=== PATIENT | male | born 1990 | race Caucasian/White ===

== ENCOUNTER 2017-12-19 09:38 | Emergency (ER) | payer SELFPAY ==
[~2017-12-19] VITALS: Ht 172.7 cm; Wt 87.0 kg
[2017-12-19 09:39] VITALS: BP 137/64; PULSE 94; RESP 14; TEMP 98.6; O2SAT 98
[2017-12-19] MEDS ORDERED: HIBI4LIQ TOPICAL (11:54)
[2017-12-19] MEDS ORDERED: BACT800T5 PO (11:54)
--- NOTE | 2017-12-19 11:55 | PD ---
HPI Chief Complaint: Skin Problem Time Seen by Provider: 11:40 Travel History International Travel<30 days: No Contact w/Intl Traveler<30days: No Traveled to known affect area: No History of Present Illness HPI The patient is a 27-year-old male who presents emergency department for upper lip pain and swelling as well as a small superficial abscess to the right anterior lateral thigh. The patient states that his ex-girlfriend has a history of MRSA infections. He is worried that he possibly could have an MRSA infection. He does note the abscess on the anterior aspect of the right thigh a small, red, but is been no drainage. He also complains of pain and swelling over the philtrum, but denies any visible head to an abscess and denies any drainage. He denies any swelling of the actual lip, tongue, or uvula. He denies any difficulty swallowing. He denies any associated fever, chills, or sweats. PFSH Past Medical History Medical History: Denies Significant Hx Social History Tobacco Use: Yes Allergies-Medications (Allergen,Severity, Reaction): Coded Allergies: vancomycin (Verified Allergy, Severe, zoya, 12/19/17) Review of Systems Except as stated in HPI: all other systems reviewed are Neg General / Constitutional: No: Fever HENT: Positive: Other (pain and swelling over the philtrum) Musculoskeletal: No: Pain Skin: Positive Other (as noted in the history of present illness) Physical Exam Narrative GENERAL: Awake, alert, pleasant 27-year-old male who appears his stated age and is in no acute respiratory distress. SKIN: Focused skin assessment warm/dry. Small very superficial area of swelling over the right lateral thigh that is 1 cm in diameter with a focal head. No significant surrounding erythema or underlying fluctuance. HEAD: Atraumatic. Normocephalic. EYES: Pupils equal and round. No scleral icterus. No injection or drainage. ENT: No nasal bleeding or discharge. Mucous membranes pink and moist. No significant swelling noted over the philtrum, however, he is tender. No angioedema of the lips, tongue, uvula noted. NECK: Trachea midline. No JVD. MUSCULOSKELETAL: No obvious deformities. No clubbing. No cyanosis. No edema. NEUROLOGICAL: Awake and alert. No obvious cranial nerve deficits. Motor grossly within normal limits. Normal speech. PSYCHIATRIC: Appropriate mood and affect; insight and judgment normal. Data Data Last Documented VS Vital Signs Date Time Temp Pulse Resp B/P (MAP) Pulse Ox O2 Delivery O2 Flow Rate FiO2 12/19/17 09:39 98.6 94 14 137/64 (88) 98 MDM Medical Decision Making Medical Screen Exam Complete: Yes Emergency Medical Condition: Yes Medical Record Reviewed: Yes Differential Diagnosis Differential diagnosis includes MRSA exposure, abscess, infected wound, cellulitis, carbuncle, furuncle. Narrative Course The patient's superficial abscess right lateral thigh is superficial with minimal head over the affected area and no significant fluctuance. The patient is advised to apply heat over the affected area and over the lip. The patient will be placed on Bactrim and then Hibiclens. He is advised to follow-up with primary physician. Diagnosis Primary Impression: Abscess Patient Instructions: General Instructions Additional Instructions: Medications as directed. Apply warm compresses to the affected area. Follow- up with your primary physician. Return if symptoms worsen or progress. Med/Other Pt SpecificInfo: Prescription(s) given Scripts Chlorhexidine Gluconate Topical (Hibiclens Topical) 4% Liq 1 APPLIC TOPICAL ONCE for Skin Cleanser, #118 ML 0 Refills Prov: Roge Franco MD 12/19/17 Sulfamethoxazole-Trimethoprim (Bactrim DS) 800-160 Mg Tab 1 TAB PO BID for Infection, #14 TAB 0 Refills Prov: Roge Franco MD 12/19/17 Disposition: 01 DISCHARGE HOME Condition: Stable Roge Franco MD Dec 19, 2017 11:55
== END 2017-12-19 12:22 | disposition home or self-care (01) ==
LOC: NEPD 09:38
DX: L02.415 Cutaneous abscess of right lower limb (principal); Z88.5 Allergy status to narcotic agent; Z72.0 Tobacco use
CPT/HCPCS: 99283

== ENCOUNTER 2018-03-15 04:11 | Emergency (ER) | payer MEDICAID ==
[~2018-03-15] VITALS: Ht 172.7 cm; Wt 134.0 kg
[~2018-03-15 04:11] MED LIST: BACT800T5 PO; HIBI4LIQ TOPICAL
[2018-03-15 04:26] VITALS: BP 119/58; PULSE 72; RESP 16; TEMP 97.6; O2SAT 99
[2018-03-15] MEDS ORDERED: BACT800T5 PO (05:24)
[2018-03-15] MEDS ORDERED: DOXY100C PO (05:24)
[2018-03-15] MEDS ORDERED: HYDR-3576 PO ×2 (05:24→05:38)
--- NOTE | 2018-03-15 05:31 | PD ---
HPI Chief Complaint: Skin Problem Time Seen by Provider: 05:22 Travel History International Travel<30 days: No Contact w/Intl Traveler<30days: No Traveled to known affect area: No History of Present Illness HPI 19-year-old male with a history of hidradenitis suppurativa, who presents today with complaints of recurrent abscess under his right arm. Patient states he was taking clindamycin. He reports completing his clindamycin and now is noted a red rash across his chest. He denies any shortness of breath or wheezing. He states the rash is itchy. He has an allergy to vancomycin previously. The patient states he was given a prescription for Bactrim however he never filled it. He denies any fevers, chills. He reports a red abscess type lesion to his left lateral thigh as well. There are no other complaints at the time of examination. PFSH Past Medical History Gastrointestinal Disorders: Yes (IBS) Tetanus Vaccination: < 5 Years Past Surgical History Surgical History: No Previous Surgery Social History Alcohol Use: No Tobacco Use: Yes (8 CIGARETTES DAILY) Substance Use: No Allergies-Medications (Allergen,Severity, Reaction): Coded Allergies: tramadol (Verified Allergy, Severe, 03/15/18) "MAKES ME FEEL INSANE" vancomycin (Verified Allergy, Severe, zoya, 03/15/18) Reported Meds & Prescriptions Reported Meds & Active Scripts Active Lorcet (Hydrocodone-Acetaminophen) 5-325 mg Tab 1 Tab PO Q8HR PRN Bactrim DS (Sulfamethoxazole-Trimethoprim) 800-160 Mg Tab 1 Tab PO BID Doxycycline Hyclate 100 Mg Cap 100 Mg PO BID Hibiclens Topical (Chlorhexidine Gluconate) 4% Liq 1 Applic TOPICAL ONCE Bactrim DS (Sulfamethoxazole-Trimethoprim) 800-160 Mg Tab 1 Tab PO BID Review of Systems Except as stated in HPI: all other systems reviewed are Neg General / Constitutional: No: Fever, Chills HENT: No: Lightheadedness, Neck Pain Cardiovascular: No: Chest Pain or Discomfort, Palpitations Respiratory: No: Cough, Shortness of Breath Gastrointestinal: No: Nausea, Vomiting, Abdominal Pain Skin: Positive Rash (Itchy to the anterior chest.), Positive Lesions (Under right arm and left thigh) Neurologic: No: Weakness, Dizziness Physical Exam Narrative GENERAL: Well-developed well-nourished male in no acute respiratory distress. SKIN: Patient has slight red rash to his anterior chest. There is no lesions. There is no target appearance. Under his right arm, there is a palpable early furuncle. There is no fluctuance noted. On examination of his left thigh, there is an erythematous possible early furuncle. No drainage noted. No fluctuance noted. HEAD: Atraumatic. Normocephalic. EYES: Pupils equal and round. No scleral icterus. No injection or drainage. ENT: No nasal bleeding or discharge. Mucous membranes pink and moist. NECK: Trachea midline. No JVD. CARDIOVASCULAR: Regular rate and rhythm. No murmur appreciated. RESPIRATORY: No accessory muscle use. Clear to auscultation. Breath sounds equal bilaterally. GASTROINTESTINAL: Abdomen soft, non-tender, nondistended. Hepatic and splenic margins not palpable. MUSCULOSKELETAL: No obvious deformities. No clubbing. No cyanosis. No edema. NEUROLOGICAL: Awake and alert. No obvious cranial nerve deficits. Motor grossly within normal limits. Normal speech. Data Data Last Documented VS Vital Signs Date Time Temp Pulse Resp B/P (MAP) Pulse Ox O2 Delivery O2 Flow Rate FiO2 03/15/18 04:26 97.6 72 16 119/58 (78) 99 Orders Orders Ed Discharge Order (03/15/18 05:38) MDM Medical Decision Making Medical Screen Exam Complete: Yes Emergency Medical Condition: Yes Differential Diagnosis Hidradenitis versus resistant folliculitis versus drug rash Narrative Course 19-year-old male presents with recurrent right armpit abscess. The patient has a history of hidradenitis. The patient was on clindamycin and developed a urticarial rash across his chest. The patient has no stridor. The patient has no difficulty swallowing. He has completed his clindamycin prescription. He does have a history of vancomycin allergy. He will be prescribed Bactrim and doxycycline. Also be given a prescription for Lortab. He is instructed to follow-up with his primary care physician. Diagnosis Primary Impression: Right axillary hidradenitis Additional Impressions: Left thigh early infection. Probable reaction to antibiotic. Additional Instructions: Benadryl 50 mg every 6-8 hours 2-3 days. Return if difficulty breathing or swallowing. Follow-up with primary care physician. Take both doxycycline and Bactrim for the skin condition. Med/Other Pt SpecificInfo: Prescription(s) given Scripts Hydrocodone-Acetaminophen (Lorcet) 5-325 mg Tab 1 TAB PO Q8HR Y for PAIN, #15 TAB 0 Refills Prov: Tal Sampson MD 03/15/18 Sulfamethoxazole-Trimethoprim (Bactrim DS) 800-160 Mg Tab 1 TAB PO BID for Infection, #20 TAB 0 Refills Prov: Tal Sampson MD 03/15/18 Doxycycline Hyclate (Doxycycline Hyclate) 100 Mg Cap 100 MG PO BID for Infection, #20 CAP 0 Refills Prov: Tal Sampson MD 03/15/18 Disposition: 01 DISCHARGE HOME Condition: Stable Tal Sampson MD Mar 15, 2018 05:31
== END 2018-03-15 06:07 | disposition home or self-care (01) ==
LOC: NEPE 04:11
DX: L73.2 Hidradenitis suppurativa (principal); R21 Rash and other nonspecific skin eruption; K58.9 Irritable bowel syndrome, unspecified
CPT/HCPCS: 99283

== ENCOUNTER 2018-03-28 14:55 | Emergency (ER) | payer MEDICAID ==
[~2018-03-28] VITALS: Ht 172.7 cm; Wt 88.5 kg
[~2018-03-28 14:55] MED LIST changes: +DOXY100C PO; +HYDR-3576 PO
[2018-03-28 15:17] VITALS: BP 125/79; PULSE 91; RESP 18; TEMP 98.5; O2SAT 99
[2018-03-28] MEDS ORDERED: LIDOCAINE 1%/EPINEPHrine 1:100,000 SOLN 20 ML VIAL INFIL ONE (15:30)
[2018-03-28] MEDS ORDERED: DOXY100C PO (15:38)
--- NOTE | 2018-03-28 15:38 | PD ---
HPI Chief Complaint: Laceration/Skin Injury Time Seen by Provider: 15:21 Travel History International Travel<30 days: No Contact w/Intl Traveler<30days: No Traveled to known affect area: No History of Present Illness HPI 27-year-old male complains of pain in the right foot. He jumped into fresh water while fishing stepping on an object of which he cannot remember or identify leading to laceration of the foot and severe bleeding which stopped after application of a tight dressing. He reports constant pain of moderate severity worse with palpation. Last tetanus was about a year ago. Injury occurred about 2 hours prior to ER arrival. Patient notes a fair amount of debris was present in the wound. PFSH Past Medical History Gastrointestinal Disorders: Yes (IBS) Social History Alcohol Use: No Tobacco Use: Yes (8 CIGARETTES DAILY) Substance Use: No Allergies-Medications (Allergen,Severity, Reaction): Coded Allergies: tramadol (Verified Allergy, Severe, 03/28/18) "MAKES ME FEEL INSANE" vancomycin (Verified Allergy, Severe, zoya, 03/28/18) Reported Meds & Prescriptions Reported Meds & Active Scripts Active Ibuprofen 800 Mg Tab 800 Mg PO Q6HR PRN Doxycycline Hyclate 100 Mg Cap 100 Mg PO BID Review of Systems General / Constitutional: No: Fever HENT: No: Headaches Cardiovascular: No: Irregular Rhythm Gastrointestinal: No: Diarrhea Genitourinary: No: Frequency Musculoskeletal: No: Myalgias Physical Exam Narrative GENERAL: 19-year-old male well-nourished well-developed no acute distress SKIN: Warm and dry. HEAD: Normocephalic. EYES: No scleral icterus. No injection or drainage. NECK: Supple, trachea midline. No JVD or lymphadenopathy. CARDIOVASCULAR: Regular rate and rhythm without murmurs, gallops, or rubs. RESPIRATORY: Breath sounds equal bilaterally. No accessory muscle use. GASTROINTESTINAL: Abdomen soft, non-tender, nondistended. MUSCULOSKELETAL: No cyanosis, or edema. Along the sole of the foot there is a 4 cm somewhat curvilinear laceration with organic debris in and around it. No active bleeding. [place] tenderness palpation. BACK: Nontender without obvious deformity. No CVA tenderness. Data Data Last Documented VS Vital Signs Date Time Temp Pulse Resp B/P (MAP) Pulse Ox O2 Delivery O2 Flow Rate FiO2 03/28/18 15:17 98.5 91 18 125/79 (94) 99 Orders Orders Foot, Limited (2vws) (03/28/18 ) Lidocai-Epi 1%-1:100,000 Inj (Xylocaine- (03/28/18 15:30) Doxycycline (Vibramycin) (03/28/18 15:45) Acetamin-Hydrocod 325-5 Mg ([place] 5-325 (03/28/18 16:00) Ed Discharge Order (03/28/18 16:48) MDM Medical Decision Making Medical Screen Exam Complete: Yes Emergency Medical Condition: Yes Medical Record Reviewed: Yes Differential Diagnosis Laceration, avulsion, foreign body Narrative Course The patient has a laceration of the foot which is contaminated with freshwater debris. With a 60 cc syringe and 1 L of normal saline after numbing up the foot was able to irrigate the wound fairly extensively and visually inspected and could not see any remaining debris. I then used an Irrimax 750 cc pressure irrigation device. No visualized the debris remained. Doxycycline prescription. First dose given in the ER. We discussed in detail multiple times at return precautions and the patient verbalized understanding. Diagnosis Primary Impression: Laceration of foot Qualified Codes: S91.311A - Laceration without foreign body, right foot, initial encounter Referrals: Return in 8 days for suture removal Med/Other Pt SpecificInfo: Prescription(s) given Scripts Doxycycline Hyclate (Doxycycline Hyclate) 100 Mg Cap 100 MG PO BID for Infection, #20 CAP 0 Refills Prov: Juancho Green MD 03/28/18 Disposition: 01 DISCHARGE HOME Condition: Stable Juancho Green MD March 28, 2018 15:38
[2018-03-28] MEDS ORDERED: DOXYCYCLINE HYCLATE 100 MG CAP PO ONE (15:45)
[2018-03-28] MEDS ORDERED: ACETAMINOPHEN/HYDROcodone 325 MG/5 MG TAB PO ONE (16:00)
--- NOTE | 2018-03-28 16:24 | RADRPT ---
EXAM DATE/TIME: 03/28/2018 15:37 [facility] COMPARISON: No previous studies available for comparison. INDICATIONS : Right foot laceration. Possible foreign body. [place] and may have cut foot on a rock. MEDICAL HISTORY : None. SURGICAL HISTORY : None. ENCOUNTER: Initial ACUITY: 1 day PAIN SCORE: 10/10 LOCATION: Right foot. FINDINGS: 2 views right foot. Bone alignment within normal limits. No evidence of fracture. Several adjacent r ounded 1-2 mm densities are seen in the superficial plantar soft tissues of the midfoot. More dorsall y there is a 1 cm oval faint calcific density that may represent an os perineum or foreign body on th e lateral view. CONCLUSION: 1. Several adjacent rounded 1-2 mm densities on the skin or in the superficial soft tissues of the pl [place] midfoot. 2. Oval calcific density adjacent to calcaneocuboid joint on lateral view may represent foreign body or os perineum. Anish Mackey MD on March 28, 2018 at 16:19 Board Certified Radiologist. This report was verified electronically.
[2018-03-28] MEDS ORDERED: IBUP1TAB7 PO (21:34)
== END 2018-03-28 17:10 | disposition home or self-care (01) ==
LOC: NEPD 14:55
DX: S91.311A Laceration without foreign body, right foot, initial encounter (principal); F17.210 Nicotine dependence, cigarettes, uncomplicated; W22.8XXA Striking against or struck by other objects, initial encounter; Z87.19 Personal history of other diseases of the digestive system; Z88.5 Allergy status to narcotic agent
CPT/HCPCS: 12002; 73620

== ENCOUNTER 2018-03-28 21:00 | Emergency (ER) | payer MEDICAID ==
[~2018-03-28] VITALS: Ht 172.7 cm; Wt 88.5 kg
[2018-03-28 21:09] VITALS: BP 118/76; PULSE 91; RESP 16; TEMP 98.6; O2SAT 97
[2018-03-28] MEDS: IBUPROFEN 800 MG TAB PO ONE ×2 (21:30→21:40)
[2018-03-28] MEDS ORDERED: IBUP1TAB7 PO (21:34)
--- NOTE | 2018-03-28 21:35 | PD ---
HPI Chief Complaint: Injury Time Seen by Provider: 21:23 Travel History International Travel<30 days: No Contact w/Intl Traveler<30days: No Traveled to known affect area: No History of Present Illness HPI Patient is a 27year-old male presenting to emerge from for evaluation of right foot pain. Patient was here earlier due to a [place] the beach. Since his discharge he reports that he had some bleeding, the pain is unbearable per his report. He states it is 10 out of 10, worse with ambulation. He denies any fever, chills, weakness. Patient has no other complaints at this time. Symptom onset was sudden, symptoms are moderate in nature. There are no alleviating factors. PFSH Past Medical History Medical History: Denies Significant Hx Gastrointestinal Disorders: Yes (IBS) Tetanus Vaccination: < 5 Years Influenza Vaccination: Yes Past Surgical History Surgical History: No Previous Surgery Social History Alcohol Use: No Tobacco Use: Yes (chewing tobacco) Substance Use: No Allergies-Medications (Allergen,Severity, Reaction): Coded Allergies: tramadol (Verified Allergy, Severe, 03/28/18) "MAKES ME FEEL INSANE" vancomycin (Verified Allergy, Severe, zoya, 03/28/18) Reported Meds & Prescriptions Reported Meds & Active Scripts Active Doxycycline Hyclate 100 Mg Cap 100 Mg PO BID Review of Systems Except as stated in HPI: all other systems reviewed are Neg Musculoskeletal: Positive: Myalgias, Pain Physical Exam Narrative GENERAL: Well-developed, well-nourished, alert male. Presenting in no acute distress. SKIN: Warm and dry. Repaired laceration to plantar aspect of the right foot. No active bleeding noted. Sutures are well approximated, no erythema or edema noted. 2+ dorsalis pedal pulse. HEAD: Normocephalic. EYES: No scleral icterus. No injection or drainage. NECK: Supple, trachea midline. No JVD or lymphadenopathy. CARDIOVASCULAR: Regular rate and rhythm without murmurs, gallops, or rubs. RESPIRATORY: Breath sounds equal bilaterally. No accessory muscle use. GASTROINTESTINAL: Abdomen soft, non-tender, nondistended. MUSCULOSKELETAL: No cyanosis, or edema. BACK: Nontender without obvious deformity. No CVA tenderness. Data Data Last Documented VS Vital Signs Date Time Temp Pulse Resp B/P (MAP) Pulse Ox O2 Delivery O2 Flow Rate FiO2 03/28/18 21:09 98.6 91 16 118/76 (90) 97 Orders Orders Crutches (03/28/18 21:27) Ed Discharge Order (03/28/18 21:27) Ibuprofen (Motrin) (03/28/18 21:30) MDM Medical Decision Making Medical Screen Exam Complete: Yes Emergency Medical Condition: Yes Medical Record Reviewed: Yes Interpretation(s) Vital Signs Date Time Temp Pulse Resp B/P (MAP) Pulse Ox O2 Delivery O2 Flow Rate FiO2 03/28/18 21:09 98.6 91 16 118/76 (90) 97 Differential Diagnosis Laceration versus myalgia versus contusion versus other Narrative Course Patient is a well-appearing 27-year-old male presenting for reevaluation of pain to his right foot after he sustained a laceration earlier in the day. Laceration was repaired, there is no signs or symptoms of infection. Patient will be given crutches now. He will also be given a dose of ibuprofen. He is encouraged to rest, ice, elevate extremity. He is encouraged to take ibuprofen as needed and as as directed for pain. He can continue previously prescribed antibiotics. Patient stable for discharge. Diagnosis Primary Impression: Laceration of foot Qualified Codes: S91.311D - Laceration without foreign body, right foot, subsequent encounter Referrals: Primary Care Physician 1 week Patient Instructions: General Instructions, Laceration (ED) Additional Instructions: Follow-up with your primary doctor Rest, ice, elevate extremity Continue antibiotics as prescribed Take ibuprofen as needed as directed for pain Return to emergency department for any new or worsening symptoms Wound care as previously advised Med/Other Pt SpecificInfo: Prescription(s) given Scripts Ibuprofen (Ibuprofen) 800 Mg Tab 800 MG PO Q6HR Y for PAIN, #40 TAB 0 Refills Prov: Princess Mendoza 03/28/18 Disposition: 01 DISCHARGE HOME Condition: Stable Princess Mendoza March 28, 2018 21:35
== END 2018-03-28 21:44 | disposition home or self-care (01) ==
LOC: NEPD 21:00
DX: S91.311D Laceration without foreign body, right foot, subsequent encounter (principal); F17.220 Nicotine dependence, chewing tobacco, uncomplicated; X58.XXXD Exposure to other specified factors, subsequent encounter; Y92.832 Beach as the place of occurrence of the external cause; Z88.5 Allergy status to narcotic agent; Z87.19 Personal history of other diseases of the digestive system
CPT/HCPCS: 99283; E0113